=== PATIENT | female | born 1970 | race American Indian/Alaskan Native ===

== ENCOUNTER 2017-03-20 09:11 | Inpatient (IN) | payer OTHER ==
[2017-03-20] MEDS ORDERED: HEPARIN 10,000 UNITS/10 ML ONE ×2 (09:21→09:47)
[2017-03-20] MEDS ORDERED: HEPARIN/ 0.45% NACL-25,000 UNIT/500 ML 25,000 UNIT/500 ML BAG ONE (09:21)
[2017-03-20] MEDS ORDERED: NACL 0.9% 1000 ML 1,000 ML IV ONE ×2 (09:24→09:42)
[2017-03-20] MEDS: NITROSTAT SL PRN (09:28)
[2017-03-20] MEDS ORDERED: HEPARIN IV ONE (09:30)
[2017-03-20 09:38] LABS: Basophils % (Auto) 0.7 % (0.0-1.8); Eosinophils % (Auto) 1.7 % (0.0-4.3); Hematocrit 38.1 % (30.3-42.9); Hemoglobin 12.7 gm/dl (10.1-14.3); Mean Corpuscular HGB Conc 34 % (30-34); Mean Corpuscular Hemoglobin 28 pg (28-32); Mean Corpuscular Volume 84 fl (79-97); Platelet Count 245 K/mm3 (140-440); Red Blood Count 4.56 M/mm3 (3.65-5.03); Red Cell Distribution Width 13.9 % (13.2-15.2); White Blood Count 5.5 K/mm3 (4.5-11.0)
[2017-03-20] MEDS: HEPARIN/ 0.45% NACL-25,000 UNIT/500 ML 25,000 UNIT/500 ML BAG IV SCH (09:38)
[2017-03-20 09:47] LABS: INR 1.19 (0.87-1.13)
[2017-03-20] MEDS ORDERED: CALAN ONE (09:47)
[2017-03-20] MEDS ORDERED: NITROGLYCERIN SYRINGE 3 ML ONE (09:47)
[2017-03-20] MEDS ORDERED: HEPARIN/NS 5000 UNIT/500ML(CATH LAB) 1,000 ML IR ONE (09:47)
[2017-03-20] MEDS ORDERED: XYLOCAINE 2% INFILTRATI ONE (09:47)
--- NOTE | 2017-03-20 09:47 | Emergency Department Report ---
ED Chest Pain HPI - General Chief Complaint: Chest Pain Stated Complaint: CHEST PAIN Time Seen by Provider: 03/20/17 09:24 Source: patient Mode of arrival: Stretcher Limitations: No Limitations - History of Present Illness Initial Comments: 46-year-old female presents to the emergency department via EMS complaining of chest pain. Patient reports the acute onset of left-sided chest pressure this morning one hour prior to presentation. Pain does not radiate. Patient states she was taking the trash out when symptoms began. Patient reports diaphoresis, nausea, and the skull to breathing. Patient was given 324 mg of aspirin and 1 sublingual nitroglycerin by EMS. She reports this did help her pain some, but the pain is beginning to return. There are no other complaints. MD Complaint: chest pain -: Sudden, This morning Time: 08:00 Onset: during exertion Pain Location: left chest Pain Radiation: none Severity: severe Severity scale (0 -10): 8 Quality: pressure Consistency: constant Improves With: nitroglycerin Worsens With: nothing re: nausea, diaphoresis, dyspnea. denies: vomting Treatments Prior to Arrival: aspirin, nitroglycerin Aspirin use within the Past 7 Days: (0) No - Related Data Home Medications Medication Instructions Recorded Confirmed Last Taken No Known Home Medications [No 03/20/17 03/20/17 Unknown Reported Home Medications] Allergies Allergy/AdvReac Type Severity Reaction Status Date / Time No Known Allergies Allergy Unverified 03/20/17 09:35 CELSO score - Celso Score Age > 65: (0) No Aspirin use within the Past 7 Days: (0) No 3 or more CAD Risk Factors: (0) No 2 or more Angina events in past 24 hrs: (0) No Known CAD with more than 50% Stenosis: (0) No Elevated Cardiac Markers: (0) No ST Deviation Greater than 0.5mm: (1) Yes CELSO Score: 1 ED Review of Systems ROS: Stated complaint: CHEST PAIN Other details as noted in HPI Comment: All other systems reviewed and negative Constitutional: diaphoresis Respiratory: shortness of breath Cardiovascular: chest pain Gastrointestinal: nausea ED Past Medical Hx - Past Medical History Previous Medical History?: Yes Hx Hypertension: Yes - Surgical History Past Surgical History?: Yes Additional Surgical History: D&C for spontaneous - Family History Family history: diabetes - Social History Smoking Status: Never Smoker Substance Use Type: None - Medications Home Medications: Home Medications Medication Instructions Recorded Confirmed Last Taken Type No Known Home Medications [No 03/20/17 03/20/17 Unknown History Reported Home Medications] ED Physical Exam - General Limitations: No Limitations General appearance: alert, in no apparent distress - Head Head exam: Present: atraumatic, normocephalic - Eye Eye exam: Present: normal appearance, PERRL, EOMI - ENT ENT exam: Present: normal exam, normal orophraynx, mucous membranes moist - Neck Neck exam: Present: normal inspection, full ROM. Absent: tenderness - Respiratory Respiratory exam: Present: normal lung sounds bilaterally. Absent: respiratory distress - Cardiovascular Cardiovascular Exam: Present: normal rhythm, tachycardia, normal heart sounds - GI/Abdominal GI/Abdominal exam: Present: soft, normal bowel sounds. Absent: distended, tenderness - Extremities Exam Extremities exam: Present: normal inspection, full ROM. Absent: tenderness - Back Exam Back exam: Present: normal inspection, full ROM. Absent: tenderness - Neurological Exam Neurological exam: Present: alert, oriented X3. Absent: motor sensory deficit - Skin Skin exam: Present: warm, dry, intact ED Course Vital Signs 03/20/17 09:19 Pulse Rate 111 H Respiratory 21 Rate Blood Pressure 124/76 Blood Pressure 129/83 [Left] O2 Sat by Pulse 100 Oximetry ED Medical Decision Making - Lab Data Result diagrams: 03/20/17 09:19 - EKG Data -: EKG Interpreted by Me EKG shows normal: sinus rhythm, axis, intervals, QRS complexes Rate: tachycardia - EKG Data When compared to previous EKG there are: previous EKG unavailable Interpretation: acute WI (lateral ST elevation with inferior reciprocal ST depression) - Medical Decision Making Code STEMI was activated on patient arrival. Giving additional nitroglycerin and starting the patient on a heparin drip. I have spoken with Dr. Ramon, interventional cardiology. He has reviewed the EKG and plans to take the patient to the [facility]. Patient will be admitted by the hospitalist. - Differential Diagnosis ACS, atypical chest pain, GERD Critical care attestation.: If time is entered above; I have spent that time in minutes in the direct care of this critically ill patient, excluding procedure time. ED Disposition Clinical Impression: STEMI (ST elevation myocardial infarction) Qualifiers: Involved coronary artery: unspecified coronary artery Qualified Code(s): I21.3 - ST elevation (STEMI) myocardial infarction of unspecified site Disposition: OP ADMITTED IP TO THIS HOSP Is pt being admited?: Yes Condition: Stable Referrals: PRIMARY CARE,MD [Primary Care Provider] - 3-5 Days Time of Disposition: 09:53
[2017-03-20 09:48] LABS: Partial Thromboplastin Time 33.9 Sec. (24.2-36.6)
[2017-03-20] MEDS ORDERED: NACL 0.9% 1000 ML 0 ML ONE (09:48)
[2017-03-20] MEDS ORDERED: AGGRASTAT DRIP (12.5 MG/250 ML) 0 MCG/0 ML BAG IV ONE (09:48)
[2017-03-20] MEDS ORDERED: NACL 0.9% 0 ML ONE (09:48)
[2017-03-20] MEDS ORDERED: ANGIOMAX IV ONE (09:49)
[2017-03-20] MEDS ORDERED: VERSED ONE (09:49)
[2017-03-20] MEDS ORDERED: WATER FOR INJ (PF) 0 ML ONE (09:49)
[2017-03-20] MEDS ORDERED: SUBLIMAZE ONE (09:49)
[2017-03-20 09:53] LABS: Creatine Kinase MB 1.1 ng/mL (0.0-4.0)
[2017-03-20 09:55] LABS: Anion Gap 17 mmol/L; Blood Urea Nitrogen 13 mg/dL (7-17); Calcium 8.4 mg/dL (8.4-10.2); Carbon Dioxide 22 mmol/L (22-30); Creatine Kinase 72 units/L (30-135); Glucose 160 mg/dL (65-100); Potassium 3.8 mmol/L (3.6-5.0); Sodium 142 mmol/L (137-145)
[2017-03-20] MEDS ORDERED: BENADRYL ONE (09:59)
[2017-03-20] MEDS ORDERED: PLAVIX PO ONE (10:59)
[2017-03-20] MEDS ORDERED: NACL 0.9% 1000 ML 1,000 ML IV SCH (11:00)
[2017-03-20] MEDS ORDERED: NACL 0.9% 1000 ML 1,000 ML ONE (11:01)
--- NOTE | 2017-03-20 11:06 | Consultation ---
History of Present Illness Consult date: 03/20/17 Consult reason: chest pain, other (ACS) History of present illness: 46y F who presented with chest pain, acute coronary syndrome. ECG was indeterminate, subtle, borderline lateral ST abnormality. Cardiac cath: 100% occlusion of the LAD in its distal apical segment. Not suitable for intervention-recommende for medical therapy. The reminder of her coronary anatomy has no significant lesions. LVEF was 55-60%, with a small segment of anteroapical HK. Medical therapy with Imdur, metoprolol, Lisinopril, ASA, Plavix and Atorvastatin. Heparin for 48hrs while hospitalized. Past History Past Medical History: No medical history Medications and Allergies Allergies Allergy/AdvReac Type Severity Reaction Status Date / Time No Known Allergies Allergy Verified 03/20/17 09:47 Home Medications Medication Instructions Recorded Confirmed Last Taken Type No Known Home Medications [No 03/20/17 03/20/17 Unknown History Reported Home Medications] Active Meds: Active Medications Sodium Chloride (Nacl 0.9% 1000 Ml) 1,000 mls @ 42 mls/hr IV ONCE ONE Stop: 03/21/17 09:12 Heparin Sodium/Sodium Chloride (Heparin/ 0.45% Nacl-25,000 Unit/500 Ml) 25,000 unit in 500 mls @ 31.298 mls/hr IV TITRATE EVELYNE; 15 UNITS/KG/HR PRN Reason: Protocol Stop: 03/22/17 09:59 Last Admin: 03/20/17 09:38 Dose: 15 units/kg/hr, 31.298 mls/hr Nitroglycerin (Nitrostat) 0.4 mg SL .Q5MIN PRN PRN Reason: Chest Pain Last Admin: 03/20/17 09:28 Dose: 0.4 mg Review of Systems Cardiovascular: chest pain, shortness of breath, no orthopnea, no palpitations, no rapid/irregular heart beat, no edema, no syncope, no lightheadedness Physical Examination Vital Signs Pulse Resp BP Pulse Ox 109 H 17 129/83 100 03/20/17 09:19 03/20/17 09:19 03/20/17 09:19 03/20/17 09:19 General appearance: no acute distress HEENT: Positive: PERRL Neck: Positive: neck supple Cardiac: Positive: Reg Rate and Rhythm Lungs: Positive: clear to auscultation Neuro: Positive: Grossly Intact Abdomen: Positive: Soft Female genitourinary: deferred Skin: Positive: Clear Extremities: Absent: edema Results 03/20/17 09:19 03/20/17 09:19 Cardiac Enzymes 03/20/17 Range/Units 09:19 CK-MB (CK-2) 1.1 (0.0-4.0) ng/mL Coagulation 03/20/17 Range/Units 09:19 PT 15.0 H (12.2-14.9) Sec. INR 1.19 H (0.87-1.13) APTT 33.9 (24.2-36.6) Sec. CBC 03/20/17 Range/Units 09:19 WBC 5.5 (4.5-11.0) K/mm3 RBC 4.56 (3.65-5.03) M/mm3 Hgb 12.7 (10.1-14.3) gm/dl Hct 38.1 (30.3-42.9) % Plt Count 245 (140-440) K/mm3 Lymph # 2.9 (1.2-5.4) K/mm3 [place] # 0.4 (0.0-0.8) K/mm3 Eos # 0.1 (0.0-0.4) K/mm3 Baso # 0.0 (0.0-0.1) K/mm3 Comprehensive Metabolic Panel 03/20/17 Range/Units 09:19 Sodium 142 (137-145) mmol/L Potassium 3.8 (3.6-5.0) mmol/L Chloride 107.0 (98-107) mmol/L Carbon Dioxide 22 (22-30) mmol/L BUN 13 (7-17) mg/dL Creatinine 0.5 L (0.7-1.2) mg/dL Glucose 160 H (65-100) mg/dL Calcium 8.4 (8.4-10.2) mg/dL EKG interpretations - Telemetry EKG Rhythm: Sinus Rhythm Assessment and Plan - Patient Problems (1) ACS (acute coronary syndrome) Status: Acute Plan to address problem: Cardiac cath: 100% occlusion of the LAD in its distal apical segment. Not suitable for intervention-recommende for medical therapy. The reminder of her coronary anatomy has no significant lesions. LVEF was 55-60%, with a small segment of anteroapical HK. Medical therapy with Imdur, metoprolol, Lisinopril, ASA, Plavix and Atorvastatin. Heparin for 48hrs while hospitalized.
[2017-03-20 14:09] LABS: Hematocrit 38.8 % (30.3-42.9)
--- NOTE | 2017-03-20 14:16 | History and Physical Report ---
History of Present Illness Date of examination: 03/20/17 Date of admission: 03/20/17 10:59 Chief complaint: Chest pain History of present illness: 46-year-old -[place] female presented to the ER via EMS from home with complaint of chest pain. Patient reported patient reported sharp and stabbing midsternal chest pain started this morning after returning from walking to and from her mailbox. Patient also reported having numbness to her left arm. Patient reported this was not the first time she is had this episode intermittently for over a year; However, this morning's episode, the pain was a 9 out of 10 on scale 0/10. Patient denied significant past medical history, only had an ectopic in 1999. Patient denies smoking and alcohol use. Patient denies fever, chills, nausea, vomiting, abdomen pain, diarrhea and constipation. Past History Past Medical History: No medical history Past Surgical History: No surgical history, Other Social history: single, lives with family, alcohol abuse (Social drinker 2-3 times a year), full code. denies: smoking, prescription drug abuse Family history: diabetes, hypertension, other (Hyperlipidemia) Medications and Allergies Allergies Allergy/AdvReac Type Severity Reaction Status Date / Time No Known Allergies Allergy Verified 03/20/17 09:47 Home Medications Medication Instructions Recorded Confirmed Last Taken Type No Known Home Medications [No 03/20/17 03/20/17 Unknown History Reported Home Medications] Active Meds: Active Medications Aspirin (Halfprin Ec) 81 mg PO QDAY EVELYNE Atorvastatin Calcium (Lipitor) 20 mg PO QHS EVELYNE Clopidogrel Bisulfate (Plavix) 75 mg PO QDAY EVELYNE Sodium Chloride (Nacl 0.9% 1000 Ml) 1,000 mls @ 42 mls/hr IV ONCE ONE Stop: 03/21/17 09:12 Heparin Sodium/Sodium Chloride (Heparin/ 0.45% Nacl-25,000 Unit/500 Ml) 25,000 unit in 500 mls @ 31.298 mls/hr IV TITRATE EVELYNE; 15 UNITS/KG/HR PRN Reason: Protocol Stop: 03/22/17 09:59 Last Admin: 03/20/17 09:38 Dose: 15 units/kg/hr, 31.298 mls/hr Sodium Chloride (Nacl 0.9% 1000 Ml) 1,000 mls @ 100 mls/hr IV DIRECT EVELYNE Stop: 03/20/17 20:59 Last Admin: 03/20/17 11:14 Dose: 100 mls/hr Isosorbide Mononitrate (Imdur) 30 mg PO QDAY [facility] Lisinopril (Zestril) 2.5 mg PO QDAY [facility] Metoprolol Tartrate (Lopressor) 25 mg PO BID [facility] Nitroglycerin (Nitrostat) 0.4 mg SL .Q5MIN PRN PRN Reason: Chest Pain Last Admin: 03/20/17 09:28 Dose: 0.4 mg Review of Systems Constitutional: no weight gain, no fever, no chills Ears, nose, mouth and throat: no nasal congestion, no headache, no vertigo Breasts: normal Cardiovascular: chest pain, no palpitations, no syncope, no shortness of breath Respiratory: no cough with sputum Rectal: no pain, no incontinence Musculoskeletal: leg numbness/tingling (Left arm numbness during the chest pain episode), no low back pain Integumentary: no rash, no sores, no wounds Neurological: no head injury, no syncope, no headaches Psychiatric: no anxiety, no suicidal ideation, no depression Exam - Constitutional Vitals: Temp Pulse Resp BP Pulse Ox 98.3 F 95 H 16 123/74 97 03/20/17 10:45 03/20/17 12:30 03/20/17 12:30 03/20/17 12:30 03/20/17 12:30 General appearance: Present: no acute distress, well-nourished - EENT Eyes: Present: PERRL ENT: hearing intact, clear oral mucosa - Neck Neck: Present: supple, normal ROM - Respiratory Respiratory effort: normal Respiratory: bilateral: CTA - Cardiovascular Rhythm: regular Heart Sounds: Present: S1 & S2. Absent: rub, click - Extremities Extremities: pulses symmetrical, No edema Peripheral Pulses: within normal limits - Abdominal General gastrointestinal: Present: soft, non-tender, non-distended, hypoactive bowel sounds - Integumentary Integumentary: Present: clear, warm, dry - Musculoskeletal Musculoskeletal: gait normal, strength equal bilaterally - Psychiatric Psychiatric: appropriate mood/affect, intact judgment & insight - Neurologic Neurologic: CNII-XII intact, moves all extremities - Allied Health Allied health notes reviewed: nursing Results - Labs CBC & Chem 7: 03/20/17 13:24 03/20/17 09:19 Labs: Laboratory Last Values WBC 5.5 K/mm3 (4.5-11.0) 03/20/17 09:19 RBC 4.56 M/mm3 (3.65-5.03) 03/20/17 09:19 Hgb 13.0 gm/dl (10.1-14.3) 03/20/17 13:24 Hct 38.8 % (30.3-42.9) 03/20/17 13:24 MCV 84 fl (79-97) 03/20/17 09:19 MCH 28 pg (28-32) 03/20/17 09:19 MCHC 34 % (30-34) 03/20/17 09:19 RDW 13.9 % (13.2-15.2) 03/20/17 09:19 Plt Count 246 K/mm3 (140-440) 03/20/17 13:24 Lymph % (Auto) 51.6 % (13.4-35.0) H 03/20/17 09:19 [place] % (Auto) 7.6 % (0.0-7.3) H 03/20/17 09:19 Eos % (Auto) 1.7 % (0.0-4.3) 03/20/17 09:19 Baso % (Auto) 0.7 % (0.0-1.8) 03/20/17 09:19 Lymph # 2.9 K/mm3 (1.2-5.4) 03/20/17 09:19 [place] # 0.4 K/mm3 (0.0-0.8) 03/20/17 09:19 Eos # 0.1 K/mm3 (0.0-0.4) 03/20/17 09:19 Baso # 0.0 K/mm3 (0.0-0.1) 03/20/17 09:19 Seg Neutrophils % 38.4 % (40.0-70.0) L 03/20/17 09:19 Seg Neutrophils # 2.1 K/mm3 (1.8-7.7) 03/20/17 09:19 PT 15.0 Sec. (12.2-14.9) H 03/20/17 09:19 INR 1.19 (0.87-1.13) H 03/20/17 09:19 APTT 33.9 Sec. (24.2-36.6) 03/20/17 09:19 Sodium 142 mmol/L (137-145) 03/20/17 09:19 Potassium 3.8 mmol/L (3.6-5.0) 03/20/17 09:19 Chloride 107.0 mmol/L (98-107) 03/20/17 09:19 Carbon Dioxide 22 mmol/L (22-30) 03/20/17:19 Anion Gap 17 mmol/L 03/20/17 09:19 BUN 13 mg/dL (7-17) 03/20/17 09:19 Creatinine 0.5 mg/dL (0.7-1.2) L 03/20/17 09:19 Estimated GFR > 60 ml/min 03/20/17 09:19 BUN/Creatinine Ratio 26.00 % 03/20/17:19 Glucose 160 mg/dL (65-100) H 03/20/17:19 Calcium 8.4 mg/dL (8.4-10.2) 03/20/17 09:19 Total Creatine Kinase 72 units/L (30-135) 03/20/17 09:19 CK-MB (CK-2) 1.1 ng/mL (0.0-4.0) 03/20/17 09:19 CK-MB (CK-2) Rel Index 1.5 (0-4) 03/20/17:19 Troponin T < 0.010 ng/mL (0.00-0.029) 03/20/17:19 Blood Type A POSITIVE 03/20/17:19 Antibody Screen TNR 03/20/17:19 JEANNE Antibody Screen Negative 03/20/17 09:19 Assessment and Plan Assessment and plan: 46-year-old -[place] female presented to the ER via EMS from home with complaint of chest pain. Patient reported patient reported sharp and stabbing midsternal chest pain started this morning after returning from walking to and from her mailbox. Patient also reported having numbness to her left arm. Patient reported this was not the first time she is had this episode intermittently for over a year; However, this morning's episode, the pain was a 9 out of 10 on scale 0/10. Patient denied significant past medical history, only had an ectopic in 1999. Patient denies smoking and alcohol use. On exam, Patient alert and oriented 3, denies fever, chills, nausea, vomiting , abdomen pain, diarrhea and constipation. 1. Chest pain due to ST elevation [place]- EKG and chest x-ray obtained in ER, serial cardiac enzyme, IV Heparin drip, consult cardiac interventionalists, consult cardiac rehab 2. Hyperglycemia - A1c ordered, monitor Accu-Checks, and insulin sliding scale ordered while in the hospital 3. DVT prophylaxis- Patient already on heparin drip Advance Directives: No (Full Code) VTE prophylaxis?: Chemical Plan of care discussed with patient/family: Yes
[2017-03-20 14:36] LABS: INR 1.12 (0.87-1.13)
[2017-03-20 14:37] LABS: Partial Thromboplastin Time 50.3 Sec. (24.2-36.6)
[2017-03-20] MEDS ORDERED: ZOFRAN IV PRN (15:48)
[2017-03-20] MEDS ORDERED: DULCOLAX PR PRN (15:48)
[2017-03-20] MEDS ORDERED: TYLENOL PO PRN (15:48)
[2017-03-20] MEDS ORDERED: MILK OF MAGNESIA PO PRN (15:48)
[2017-03-20] MEDS ORDERED: D50W (25GM) IV PRN (16:15)
--- NOTE | 2017-03-20 16:43 | Cardiac Catherization Report ---
REASON FOR PROCEDURE: The patient is a 46-year-old woman who presented to the Emergency Room with chest pain suspicious of acute coronary syndrome. The ECG revealed nonspecific, subtle ST elevation in the lateral precordial leads, prompting recommendation for emergency cardiac catheterization protocol. DESCRIPTION OF PROCEDURE: The patient was prepped and draped in a sterile fashion after informed consent. The right femoral artery was entered using the Seldinger technique followed by placement of a 6-[place] sheath. Selective left and right coronary angiography was performed using #4 right and left Yasir catheters. A pigtail catheter was used for left ventricle angiography. The catheters were removed, sheath removed, and hemostasis achieved using an Angio-Seal device. The patient was returned to the post-procedure unit in stable condition. There were no complications. FINDINGS: HEMODYNAMICS: Left ventricle end diastolic pressure was 25, following coronary angiography. Ascending aortic pressure was 105/71. There was no significant pressure gradient on pullback across the aortic valve. CORONARY ANGIOGRAPHY: The left main coronary artery was angiographically normal. The left anterior descending artery contained minimal irregularities in its proximal and mid segments. There was also no significant disease in a large proximal diagonal branch. Following that, we noted complete occlusion of the LAD in its distal, apical segment. Prior to this occlusion, the LAD tapered significantly to a diameter of less than 2 mm, and was very tortuous, culminating in the complete occlusion in the apical segment. The circumflex artery was a large system that contained mild irregularities, no significant disease. The right coronary artery was a large dominant vessel with a large PDA that extended to the left ventricular apex, as well as the large posterior left ventricular branch. This right coronary artery and its branches were free of significant disease. Left ventricular chamber size was within normal spread. Overall, left ventricular systolic function was normal, ejection fraction 55-60%. We did note a small focal segment of moderate to severe hypokinesis of the anteroapical wall. CONCLUSION: 1. Acute coronary syndrome. 2. Emergency cardiac catheterization. 3. Complete occlusion of the LAD in its distal, apical segment. 4. Otherwise, no other significant coronary lesions. 5. Overall, well preserved left ventricular systolic function, ejection fraction 55-60%. Regional wall motion abnormalities described consistent with distal apical LAD infarct. RECOMMENDATION: The distal apical small vessel occlusion of the LAD is not suitable for coronary intervention and will be managed medically. [facility]# [id number] JOSE ARMANDO/DELORES
[2017-03-20] MEDS ORDERED: MORPHINE ONE (17:53)
[2017-03-20] MEDS: LOPRESSOR PO SCH ×2 (19:55→21:46)
[2017-03-20] MEDS: IMDUR PO SCH (20:00)
[2017-03-20] MEDS: NOVOLOG SUB-Q SCH ×2 (20:01→21:48)
[2017-03-20] MEDS: MORPHINE IV PRN (21:48)
--- NOTE | 2017-03-20 23:41 | Admit Criteria Form ---
Admission Criteria Documentation: MYOCARDIAL INFARCTION Clinical Indications for Admission to Inpatient Care (Place 'X' for any and all applicable criteria): Admission is indicated for 1 or more of the following (1)(2)(3)(4): [X ]I. Acute VA [ ]II. Contraindications and/or Inappropriate clinical situations for Observational Care in patients with Myocardial Infarction, when ANY ONE of the following is required: [ ]a) Patient with High risk of cardiac embolism (e.g, patients with previous cardiac embolism, LVEF < 40%, age >75 and patients with prosthetic valve) 18 [ ]b) Patient with Moderate risk including DM patient, CAD and patient aged 65-75 18 [ ]c) Patient with any change in cardiac biomarker especially troponin should be managed as high risk in an inpatient setting 19 [ ]d) Physician judgement irrespective of ECG and other diagnostic findings 20 [ ]III.General contraindications and/or Inappropriate clinical situations for Observational Care in patients with Myocardial Infarction, when ANY ONE of the following is required: [ ]a) Prediction of prolongation of LOS based on ANY ONE of the following may be considered as a contraindication for observational care 2, 3, 4, 5, 6, 7, 8, 9, 10, 11 [ ]i) Age > 65 yrs. [ ]ii) Patient arriving by ambulance [ ]iii) Patient with high acuity [ ]iv) Patient requiring vital sign monitoring [ ]v) Patient on IV medication [ ]b) Systolic blood pressures greater than or equal to 180mmHg 3,12 [ ]c) Patient with altered mental status including delirium and other alteration of consciousness, (3) [ ]d) Patient whose discharge disposition will be to a fdc home or rehabilitation home should not be managed in Emergency Department Observation Unit. CMS rule requires 3 days hospital stay before such placement. 3,13 [ ]e) Patient with failure to thrive due to broad array of etiologies 3 ,16,17 [ ]f) Inability to ambulate 3,14 Extended stay beyond goal length of stay may be needed for (1)(18)(20)(24)(25): [ ]a) Hemodynamic instability, persisting symptoms after intensive medical management, or recurring severe, prolonged symptoms [ ]b) Intravascular procedural complications such as acute vessel closure, stent thrombosis, stent malposition, or vessel dissection (26)(27)(28) [ ]c) Extravascular procedural complications such as retroperitoneal hematoma , pericardial effusion, or cardiac tamponade [ ]d) Entry site complications causing bleeding, hematoma or distal ischemia and requiring ongoing monitoring, surgical repair or surgical thrombectomy. Dangerous arrhythmia [ ]e) Complicated percutaneous coronary intervention (e.g., unsuccessful percutaneous coronary intervention or percutaneous coronary intervention of non- [place] vessel) [ ]f) Urgent or emergent surgery for complications of VA (e.g., ventricular rupture, valvular insufficiency) [ ]g) Surgical revascularization via coronary artery bypass graft [ ]h) Heart failure (e.g., pulmonary edema) [ ]i) Unstable pulmonary comorbidities, including COPD or pneumonia (31) [ ]j) Acute renal failure The original [employer] content created by [email or web address] has been revised. The portions of the content which have been revised are identified through the use of italic text or in bold, and [employer] has neither reviewed nor approved the modified material. All other unmodified content is copyright [facility] Please see references footnoted in the original [email or web address] edition 2016 Admission Criteria Met: Yes
[2017-03-21] MEDS ORDERED: NACL 0.9% 500 ML 500 ML IV ONE (05:14)
[2017-03-21] MEDS: NOVOLOG SUB-Q SCH ×4 (07:30→22:08)
[2017-03-21 08:31] LABS: Basophils % (Auto) 0.4 % (0.0-1.8); Eosinophils % (Auto) 0.1 % (0.0-4.3); Hemoglobin 11.7 gm/dl (10.1-14.3); Mean Corpuscular HGB Conc 33 % (30-34); Mean Corpuscular Hemoglobin 28 pg (28-32); Mean Corpuscular Volume 82 fl (79-97); Platelet Count 240 K/mm3 (140-440); Red Blood Count 4.26 M/mm3 (3.65-5.03); Red Cell Distribution Width 13.7 % (13.2-15.2); White Blood Count 12.7 K/mm3 (4.5-11.0)
--- NOTE | 2017-03-21 08:35 | Progress Note ---
Assessment and Plan Assessment and plan: Acute NSTEMI. Patient presented with chest pain, diagnosed with NSTEMI. Cardiac cath yesterday showed total occlusion of LAD in distal apical segment. Medical management recommended by Cardiology. Continue Aspirin, Plavix, Heparin drip, metoprolol. Likely transfer from ICU to telemetry tomorrow Morbid obesity. Full code status. History Interval history: patient presented with chest pain, diagnosed with SD, no more chest pain Hospitalist Physical - Physical exam Narrative exam: Gen: appearance :Not in acute distress,morbidly obese HEENT: normocephalic atraumatic Neck :supple no JVD Lungs: clear to auscultation bilaterally no crackles or wheezes Heart:S1 and S2 regular no murmurs no gallop Abdomen soft, nontender, nondistended, normal bowel sounds Extremities: no edema, no clubbing, or cyanosis Neuro : Awake alert oriented 3, no focal neurologic signs Psych :normal mood. - Constitutional Vitals: Temp Pulse Resp BP Pulse Ox 98.4 F 61 11 L 97/59 96 03/21/17 08:00 03/21/17 07:00 03/21/17 07:00 03/21/17 07:00 03/21/17 07:00 General appearance: Present: no acute distress, well-nourished Results - Labs CBC & Chem 7: 03/21/17 07:57 03/21/17 07:57 Labs: Laboratory Last Values WBC 12.7 K/mm3 (4.5-11.0) H 03/21/17 07:57 RBC 4.26 M/mm3 (3.65-5.03) 03/21/17 07:57 Hgb 11.7 gm/dl (10.1-14.3) 03/21/17 07:57 Hct 35.0 % (30.3-42.9) 03/21/17 07:57 MCV 82 fl (79-97) 03/21/17 07:57 MCH 28 pg (28-32) 03/21/17 07:57 MCHC 33 % (30-34) 03/21/17 07:57 RDW 13.7 % (13.2-15.2) 03/21/17 07:57 Plt Count 240 K/mm3 (140-440) 03/21/17 07:57 Lymph % (Auto) 21.5 % (13.4-35.0) 03/21/17 07:57 [place] % (Auto) 6.9 % (0.0-7.3) 03/21/17 07:57 Eos % (Auto) 0.1 % (0.0-4.3) 03/21/17 07:57 Baso % (Auto) 0.4 % (0.0-1.8) 03/21/17 07:57 Lymph # 2.7 K/mm3 (1.2-5.4) 03/21/17 07:57 [place] # 0.9 K/mm3 (0.0-0.8) H 03/21/17 07:57 Eos # 0.0 K/mm3 (0.0-0.4) 03/21/17 07:57 Baso # 0.0 K/mm3 (0.0-0.1) 03/21/17 07:57 Seg Neutrophils % 71.1 % (40.0-70.0) H 03/21/17 07:57 Seg Neutrophils # 9.1 K/mm3 (1.8-7.7) H 03/21/17 07:57 PT 14.3 Sec. (12.2-14.9) 03/20/17 13:24 INR 1.12 (0.87-1.13) 03/20/17 13:24 APTT 50.3 Sec. (24.2-36.6) H 03/20/17 13:24 Heparin Anti-Xa Level 1.57 U.I./ml (0.3-0.7) H 03/20/17 21:12 Sodium 142 mmol/L (137-145) 03/20/17 09:19 Potassium 3.8 mmol/L (3.6-5.0) 03/20/17 09:19 Chloride 107.0 mmol/L (98-107) 03/20/17 09:19 Carbon Dioxide 22 mmol/L (22-30) 03/20/17 09:19 Anion Gap 17 mmol/L 03/20/17 09:19 BUN 13 mg/dL (7-17) 03/20/17 09:19 Creatinine 0.5 mg/dL (0.7-1.2) L 03/20/17 09:19 Estimated GFR > 60 ml/min 03/20/17 09:19 BUN/Creatinine Ratio 26.00 % 03/20/17 09:19 Glucose 160 mg/dL (65-100) H 03/20/17 09:19 POC Glucose 162 (70-105) H 03/20/17 21:44 Hemoglobin A1c 6.1 % (4-6) H 03/20/17 16:48 Calcium 8.4 mg/dL (8.4-10.2) 03/20/17 09:19 Total Creatine Kinase 72 units/L (30-135) 03/20/17 09:19 CK-MB (CK-2) 1.1 ng/mL (0.0-4.0) 03/20/17 09:19 CK-MB (CK-2) Rel Index 1.5 (0-4) 03/20/17 09:19 Troponin T < 0.010 ng/mL (0.00-0.029) 03/20/17 09:19 Blood Type A POSITIVE 03/20/17 09:19 Antibody Screen TNR 03/20/17 09:19 JEANNE Antibody Screen Negative 03/20/17 09:19
[2017-03-21 08:44] LABS: Anion Gap 13 mmol/L; Blood Urea Nitrogen 10 mg/dL (7-17); Calcium 8.1 mg/dL (8.4-10.2); Carbon Dioxide 24 mmol/L (22-30); Chloride 109.8 mmol/L (98-107); Glucose 117 mg/dL (65-100); Potassium 3.9 mmol/L (3.6-5.0); Sodium 143 mmol/L (137-145)
[2017-03-21 08:45] LABS: Creatine Kinase MB 53.6 ng/mL (0.0-4.0)
--- NOTE | 2017-03-21 09:58 | Progress Note ---
Assessment and Plan Acute coronary syndrome Cardiac cath: 100% occlusion of the LAD in its distal apical segment. Not suitable for intervention-recommended for medical therapy. The reminder of her coronary anatomy has no significant lesions. LVEF was 55-60%, with a small segment of anteroapical HK. Recommendations: CCU monitoring for an additional 24hrs. Continue medical therapy for coronary disease with Imdur, Metoprolol, Lisinopril , ASA, Plavix and Atorvastatin. Subjective Date of service: 03/21/17 Interval history: Patient denies chest pain and shortness of breath. Objective Vital Signs Temp Pulse Pulse Resp Resp BP Pulse Ox 03/21/17 08:45 64 14 108/65 100 03/21/17 08:30 69 11 L 113/69 100 03/21/17 08:15 65 11 L 112/66 03/21/17 08:00 98.4 F 62 11 L 106/62 97 03/21/17 07:45 79 13 113/70 97 03/21/17 07:30 63 16 106/63 03/21/17 07:15 67 19 105/61 97 03/21/17 07:00 61 11 L 97/59 96 03/21/17 06:45 86 20 119/66 99 03/21/17 06:30 77 17 102/60 98 03/21/17 06:28 20 03/21/17 06:15 66 14 103/65 96 03/21/17 06:00 61 15 111/65 96 03/21/17 05:45 65 17 109/60 97 03/21/17 05:30 55 L 10 L 104/61 99 03/21/17 05:28 12 03/21/17 05:15 68 15 98/57 96 03/21/17 05:00 63 16 87/47 96 03/21/17 04:45 60 14 81/49 97 03/21/17 04:30 71 13 96/59 96 03/21/17 04:15 70 14 101/57 97 03/21/17 04:00 98.7 F 66 15 103/59 97 03/21/17 03:45 63 11 L 99/60 97 03/21/17 03:30 64 16 100/59 96 03/21/17 03:15 64 17 98/55 96 03/21/17 03:00 54 L 15 99/56 95 03/21/17 02:45 73 25 H 95/59 98 03/21/17 02:30 56 L 13 94/50 96 03/21/17 02:15 73 15 96/59 95 03/21/17 02:00 68 16 100/62 97 03/21/17 01:45 72 17 105/62 96 03/21/17 01:30 69 18 103/61 96 03/21/17 01:15 57 L 9 L 99/54 98 03/21/17 01:00 60 16 87/46 95 03/21/17 00:45 82 19 105/62 96 03/21/17 00:30 76 13 100/62 98 03/21/17 00:15 69 15 105/61 99 03/21/17 00:00 98.6 F 71 16 103/66 98 03/20/17 23:45 66 16 102/60 98 03/20/17 23:30 66 17 109/63 98 03/20/17 23:15 69 17 108/61 98 03/20/17 23:00 71 16 105/59 99 03/20/17 22:45 75 11 L 102/52 98 03/20/17 22:30 78 18 98/50 98 03/20/17 22:18 20 03/20/17 22:15 88 20 130/73 96 03/20/17 22:00 85 17 118/73 99 03/20/17 21:56 16 03/20/17 21:48 94 H 15 110/69 98 03/20/17 21:46 78 115/72 03/20/17 21:45 87 10 L 110/69 100 03/20/17 21:30 93 H 17 115/72 97 03/20/17 21:15 90 16 128/65 97 03/20/17 21:00 99 H 17 116/71 97 03/20/17 20:45 84 17 123/68 98 03/20/17 20:30 93 H 15 130/63 98 03/20/17 20:15 101 H 20 121/74 99 03/20/17 20:04 98 03/20/17 20:00 99.2 F 97 H 11 L 131/84 97 03/20/17 19:46 102 H 14 113/62 98 03/20/17 19:30 102 H 68 16 111/65 98 03/20/17 19:16 102 H 15 111/65 06/05/17 19:00 100 H 17 111/65 06/05/17 18:45 94 H 16 111/65 97 /05/17 18:30 96 H 20 122/69 98 0605/17 18:15 98 H 12 112/70 98 05/17 18:00 95 H 12 121/71 99 06/05/17 17:45 96 H 15 116/72 97 06/05/17 17:30 98 H 15 120/72 98 0605/ 17:15 107 H 15 141/75 98 05/ 17:00 87 13 126/77 98 05/17 16:45 95 H 15 117/77 97 05/ 16:30 94 H 11 L 119/78 98 05/ 16:20 89 12 117/76 98 05/ 16:10 95 H 17 129/77 97 05/17 16:00 98.6 F 107 H 15 129/77 96 05/ 15:50 96 H 15 108/69 97 05/17 15:40 94 H 14 114/61 97 05/17 15:39 96 05/17 15:30 93 H 14 114/61 97 05/17 15:20 86 13 111/60 98 05/ 15:10 99 H 16 120/66 98 05/17 15:00 99 H 13 120/66 98 05/17 14:50 94 H 12 106/69 98 05/17 14:40 91 H 11 L 114/71 98 05/17 14:30 91 H 11 L 114/71 97 05/17 14:20 96 H 13 110/77 100 05/ 14:10 107 H 17 107/68 95 05/17 14:00 98 H 17 107/68 95 05/17 13:50 93 H 14 104/60 96 05/ 13:40 108 H 23 114/67 98 05/17 13:30 85 15 110/61 99 /05/17 13:20 103 H 13 114/67 98 05/17 13:10 96 H 12 108/61 98 05/17 13:00 96 H 16 03/20/17 12:30 95 H 16 123/74 97 03/20/17 12:00 94 H 14 120/67 98 03/20/17 11:30 104 H 14 122/75 96 03/20/17 11:15 99 H 14 126/75 97 03/20/17 11:00 96 H 15 121/77 97 - Physical Examination General: No Apparent Distress HEENT: Positive: PERRL Neck: Positive: neck supple Cardiac: Positive: Reg Rate and Rhythm Neuro: Positive: Grossly Intact Incision: Cardiac Cath Site Extremities: Absent: edema - Labs and Meds Cardiac Enzymes 03/21/17 Range/Units 07:57 CK-MB (CK-2) 53.6 H (0.0-4.0) ng/mL Coagulation 03/20/17 Range/Units 13:24 PT 14.3 (12.2-14.9) Sec. INR 1.12 (0.87-1.13) APTT 50.3 H (24.2-36.6) Sec. CBC 03/20/17 03/21/17 Range/Units 13:24 07:57 WBC 12.7 H (4.5-11.0) K/mm3 RBC 4.26 (3.65-5.03) M/mm3 Hgb 13.0 11.7 (10.1-14.3) gm/dl Hct 38.8 35.0 (30.3-42.9) % Plt Count 246 240 (140-440) K/mm3 Lymph # 2.7 (1.2-5.4) K/mm3 [place] # 0.9 H (0.0-0.8) K/mm3 Eos # 0.0 (0.0-0.4) K/mm3 Baso # 0.0 (0.0-0.1) K/mm3 Comprehensive Metabolic Panel 03/21/17 Range/Units 07:57 Sodium 143 (137-145) mmol/L Potassium 3.9 (3.6-5.0) mmol/L Chloride 109.8 H (98-107) mmol/L Carbon Dioxide 24 (22-30) mmol/L BUN 10 (7-17) mg/dL Creatinine 0.5 L (0.7-1.2) mg/dL Glucose 117 H (65-100) mg/dL Calcium 8.1 L (8.4-10.2) mg/dL
[2017-03-21] MEDS: MORPHINE IV PRN (10:17)
[2017-03-21] MEDS: HALFPRIN EC PO SCH (10:32)
[2017-03-21] MEDS: PLAVIX PO SCH (10:32)
[2017-03-21] MEDS: LOPRESSOR PO SCH ×2 (10:33→22:08)
[2017-03-21] MEDS: IMDUR PO SCH (10:33)
[2017-03-21] MEDS: ZESTRIL PO SCH (10:33)
[2017-03-21] MEDS ORDERED: HEPARIN/ 0.45% NACL-25,000 UNIT/500 ML 25,000 UNIT/500 ML BAG ONE (11:24)
[2017-03-21] MEDS: HEPARIN/ 0.45% NACL-25,000 UNIT/500 ML 25,000 UNIT/500 ML BAG IV SCH (11:47)
--- NOTE | 2017-03-21 13:52 | Consultation ---
History of Present Illness - Reason for Consult Consult date: 03/21/17 ICU Requesting physician: MARIE ROJAS - History of Present Illness 46 y/o female, admitted with STEMI. Followed by cardiology. Had intervention Past History Past Medical History: No medical history Past Surgical History: No surgical history, Other Social history: single, lives with family, alcohol abuse (Social drinker 2-3 times a year), full code. denies: smoking, prescription drug abuse Family history: diabetes, hypertension, other (Hyperlipidemia) Medications and Allergies Allergies Allergy/AdvReac Type Severity Reaction Status Date / Time No Known Allergies Allergy Verified 03/20/17 09:47 Home Medications Medication Instructions Recorded Confirmed Last Taken Type No Known Home Medications [No 03/20/17 03/20/17 Unknown History Reported Home Medications] Active Meds: Active Medications Acetaminophen (Tylenol) 650 mg PO Q4H PRN PRN Reason: Pain MILD(1-3)/Fever >100.5/ORDOÑEZ Last Admin: 03/21/17 05:28 Dose: 650 mg Aspirin (Halfprin Ec) 81 mg PO QDAY [facility] Last Admin: 03/21/17 10:32 Dose: 81 mg Atorvastatin Calcium (Lipitor) 20 mg PO QHS EVELYNE Last Admin: 03/20/17 21:47 Dose: 20 mg Bisacodyl (Dulcolax) 10 mg IN QDAY PRN PRN Reason: Constipation unrelieved by MOM Clopidogrel Bisulfate (Plavix) 75 mg PO QDAY [facility] Last Admin: 03/21/17 10:32 Dose: 75 mg Dextrose (D50w (25gm)) 50 ml IV PRN PRN PRN Reason: Hypoglycemia Heparin Sodium/Sodium Chloride (Heparin/ 0.45% Nacl-25,000 Unit/500 Ml) 25,000 unit in 500 mls @ 31.298 mls/hr IV TITRATE EVELYNE; 15 UNITS/KG/HR PRN Reason: Protocol Stop: 03/22/17 09:59 Last Admin: 03/21/17 11:47 Dose: 9 units/kg/hr, 18.779 mls/hr Insulin Aspart (Novolog) 0 units SUB-Q ACHS EVELYNE PRN Reason: Protocol Last Admin: 03/21/17 07:30 Dose: Not Given Isosorbide Mononitrate (Imdur) 30 mg PO QDAY [facility] Last Admin: 03/21/17 10:33 Dose: Not Given Lisinopril (Zestril) 2.5 mg PO QDAY [facility] Last Admin: 03/21/17 10:33 Dose: Not Given Magnesium Hydroxide (Milk Of Magnesia) 30 ml PO Q4H PRN PRN Reason: Constipation Metoprolol Tartrate (Lopressor) 25 mg PO BID [facility] Last Admin: 03/21/17 10:33 Dose: Not Given Morphine Sulfate (Morphine) 2 mg IV Q4H PRN PRN Reason: Pain, Moderate (4-6) Last Admin: 03/21/17 10:17 Dose: 2 mg Nitroglycerin (Nitrostat) 0.4 mg SL .Q5MIN PRN PRN Reason: Chest Pain Last Admin: 03/20/17 09:28 Dose: 0.4 mg Ondansetron HCl (Zofran) 4 mg IV Q8H PRN PRN Reason: N/V unrelieved by Nilay Review of Systems All systems: negative Exam - Constitutional Vitals: Temp Pulse Resp BP Pulse Ox 97.4 F L 88 16 102/60 98 03/21/17 12:00 03/21/17 13:00 03/21/17 13:00 03/21/17 13:00 03/21/17 13:00 General appearance: Present: no acute distress - EENT Eyes: Present: PERRL, EOM intact - Neck Neck: Present: supple, normal ROM - Respiratory Respiratory effort: normal Respiratory: bilateral: CTA Results - Labs CBC & Chem 7: 03/22/17 04:23 03/22/17 04:23 Labs: Abnormal lab results 03/20/17 03/20/17 03/20/17 Range/Units 13:24 16:48 16:59 WBC (4.5-11.0) K/mm3 [place] # (0.0-0.8) K/mm3 Seg Neutrophils % (40.0-70.0) % Seg Neutrophils # (1.8-7.7) K/mm3 APTT 50.3 H (24.2-36.6) Sec. Heparin Anti-Xa Level (0.3-0.7) U.I./ml Chloride (98-107) mmol/L Creatinine (0.7-1.2) mg/dL Glucose (65-100) mg/dL POC Glucose 161 H (70-105) Hemoglobin A1c 6.1 H (4-6) % Calcium (8.4-10.2) mg/dL Total Creatine Kinase (30-135) units/L CK-MB (CK-2) (0.0-4.0) ng/mL CK-MB (CK-2) Rel Index (0-4) Troponin T (0.00-0.029) ng/mL 03/20/17 03/20/17 03/21/17 Range/Units 21:12 21:44 07:57 WBC 12.7 H (4.5-11.0) K/mm3 [place] # 0.9 H (0.0-0.8) K/mm3 Seg Neutrophils % 71.1 H (40.0-70.0) % Seg Neutrophils # 9.1 H (1.8-7.7) K/mm3 APTT (24.2-36.6) Sec. Heparin Anti-Xa Level 1.57 H (0.3-0.7) U.I./ml Chloride (98-107) mmol/L Creatinine (0.7-1.2) mg/dL Glucose (65-100) mg/dL POC Glucose 162 H (70-105) Hemoglobin A1c (4-6) % Calcium (8.4-10.2) mg/dL Total Creatine Kinase (30-135) units/L CK-MB (CK-2) (0.0-4.0) ng/mL CK-MB (CK-2) Rel Index (0-4) Troponin T (0.00-0.029) ng/mL 03/21/17 03/21/17 03/21/17 Range/Units 07:57 07:57 07:57 WBC (4.5-11.0) K/mm3 [place] # (0.0-0.8) K/mm3 Seg Neutrophils % (40.0-70.0) % Seg Neutrophils # (1.8-7.7) K/mm3 APTT (24.2-36.6) Sec. Heparin Anti-Xa Level 1.00 H (0.3-0.7) U.I./ml Chloride 109.8 H (98-107) mmol/L Creatinine 0.5 L (0.7-1.2) mg/dL Glucose 117 H (65-100) mg/dL POC Glucose (70-105) Hemoglobin A1c (4-6) % Calcium 8.1 L (8.4-10.2) mg/dL Total Creatine Kinase 750 H (30-135) units/L CK-MB (CK-2) 53.6 H (0.0-4.0) ng/mL CK-MB (CK-2) Rel Index 7.1 H (0-4) Troponin T 1.740 H* D (0.00-0.029) ng/mL 03/21/17 Range/Units 11:56 WBC (4.5-11.0) K/mm3 [place] # (0.0-0.8) K/mm3 Seg Neutrophils % (40.0-70.0) % Seg Neutrophils # (1.8-7.7) K/mm3 APTT (24.2-36.6) Sec. Heparin Anti-Xa Level (0.3-0.7) U.I./ml Chloride (98-107) mmol/L Creatinine (0.7-1.2) mg/dL Glucose (65-100) mg/dL POC Glucose 116 H (70-105) Hemoglobin A1c (4-6) % Calcium (8.4-10.2) mg/dL Total Creatine Kinase (30-135) units/L CK-MB (CK-2) (0.0-4.0) ng/mL CK-MB (CK-2) Rel Index (0-4) Troponin T (0.00-0.029) ng/mL Assessment and Plan 46 y/o with STEMI Follow cardiology recs They will determine when stable for transfer out of ICU
[2017-03-21] MEDS ORDERED: AMBIEN PO ONE (21:44)
[2017-03-22] MEDS: MORPHINE IV PRN (05:30)
[2017-03-22 05:41] LABS: Hemoglobin 12.3 gm/dl (10.1-14.3)
[2017-03-22 05:53] LABS: Anion Gap 14 mmol/L; Blood Urea Nitrogen 10 mg/dL (7-17); Calcium 8.2 mg/dL (8.4-10.2); Carbon Dioxide 23 mmol/L (22-30); Chloride 107.4 mmol/L (98-107); Glucose 93 mg/dL (65-100); Potassium 3.7 mmol/L (3.6-5.0); Sodium 141 mmol/L (137-145)
--- NOTE | 2017-03-22 08:58 | Progress Note ---
Assessment and Plan Assessment and plan: Acute NSTEMI. Patient presented with chest pain, diagnosed with NSTEMI. Cardiac cath yesterday showed total occlusion of LAD in distal apical segment. Medical management recommended by Cardiology. Continue Aspirin, Plavix, Heparin drip, metoprolol. Will transfer from ICU to telemetry today. home tomorrow if stable. Morbid obesity. Full code status. History Interval history: patient presented with chest pain, diagnosed with acute myocardial infarction, no more chest pain Hospitalist Physical - Physical exam Narrative exam: Gen: appearance :Not in acute distress,morbidly obese HEENT: normocephalic atraumatic Neck :supple no JVD Lungs: clear to auscultation bilaterally, no crackles or wheezes Heart:S1 and S2 regular, no murmurs no gallop Abdomen soft, non-tender, non-distended, normal bowel sounds Extremities: no edema, no clubbing, or cyanosis Neuro : Awake alert oriented 3, no focal neurologic signs Psych :normal mood. - Constitutional Vitals: Temp Pulse Resp BP Pulse Ox 98.9 F 80 16 111/71 97 03/22/17 08:00 03/22/17 08:00 03/22/17 08:00 03/22/17 08:00 03/22/17 08:34 General appearance: Present: no acute distress, well-nourished Results - Labs CBC & Chem 7: 03/22/17 04:23 03/22/17 04:23 Labs: Laboratory Last Values WBC 12.7 K/mm3 (4.5-11.0) H 03/21/17 07:57 RBC 4.26 M/mm3 (3.65-5.03) 03/21/17 07:57 Hgb 12.3 gm/dl (10.1-14.3) 03/22/17 04:23 Hct 36.0 % (30.3-42.9) 03/22/17 04:23 MCV 82 fl (79-97) 03/21/17 07:57 MCH 28 pg (28-32) 03/21/17 07:57 MCHC 33 % (30-34) 03/21/17 07:57 RDW 13.7 % (13.2-15.2) 03/21/17 07:57 Plt Count 234 K/mm3 (140-440) 03/22/17 04:23 Lymph % (Auto) 21.5 % (13.4-35.0) 03/21/17 07:57 [place] % (Auto) 6.9 % (0.0-7.3) 03/21/17 07:57 Eos % (Auto) 0.1 % (0.0-4.3) 03/21/17 07:57 Baso % (Auto) 0.4 % (0.0-1.8) 03/21/17 07:57 Lymph # 2.7 K/mm3 (1.2-5.4) 03/21/17 07:57 [place] # 0.9 K/mm3 (0.0-0.8) H 03/21/17 07:57 Eos # 0.0 K/mm3 (0.0-0.4) 03/21/17 07:57 Baso # 0.0 K/mm3 (0.0-0.1) 03/21/17 07:57 Seg Neutrophils % 71.1 % (40.0-70.0) H 03/21/17 07:57 Seg Neutrophils # 9.1 K/mm3 (1.8-7.7) H 03/21/17 07:57 PT 14.3 Sec. (12.2-14.9) 03/20/17 13:24 INR 1.12 (0.87-1.13) 03/20/17 13:24 APTT 50.3 Sec. (24.2-36.6) H 03/20/17 13:24 Heparin Anti-Xa Level 0.46 U.I./ml (0.3-0.7) 03/22/17 00:47 Sodium 141 mmol/L (137-145) 03/22/17 04:23 Potassium 3.7 mmol/L (3.6-5.0) 03/22/17 04:23 Chloride 107.4 mmol/L (98-107) H 03/22/17 04:23 Carbon Dioxide 23 mmol/L (22-30) 03/22/17 04:23 Anion Gap 14 mmol/L 03/22/17 04:23 BUN 10 mg/dL (7-17) 03/22/17 04:23 Creatinine 0.5 mg/dL (0.7-1.2) L 03/22/17 04:23 Estimated GFR > 60 ml/min 03/22/17 04:23 BUN/Creatinine Ratio 20.00 % 03/22/17 04:23 Glucose 93 mg/dL (65-100) 03/22/17 04:23 POC Glucose 91 (70-105) 03/22/17 07:41 Hemoglobin A1c 6.1 % (4-6) H 03/20/17 16:48 Calcium 8.2 mg/dL (8.4-10.2) L 03/22/17 04:23 Total Creatine Kinase 750 units/L (30-135) H 03/21/17 07:57 CK-MB (CK-2) 53.6 ng/mL (0.0-4.0) H 03/21/17 07:57 CK-MB (CK-2) Rel Index 7.1 (0-4) H 03/21/17 07:57 Troponin T 1.740 ng/mL (0.00-0.029) H* D 03/21/17 07:57 Blood Type A POSITIVE 03/20/17 09:19 Antibody Screen TNR 03/20/17 09:19 JEANNE Antibody Screen Negative 03/20/17 09:19
[2017-03-22] MEDS: NITROSTAT SL PRN (08:59)
[2017-03-22] MEDS: LOPRESSOR PO SCH ×2 (09:01→23:33)
[2017-03-22] MEDS: IMDUR PO SCH (09:01)
[2017-03-22] MEDS: PLAVIX PO SCH (09:02)
[2017-03-22] MEDS: ZESTRIL PO SCH (09:02)
[2017-03-22] MEDS: HALFPRIN EC PO SCH (09:03)
[2017-03-22] MEDS: NOVOLOG SUB-Q SCH ×4 (09:03→22:50)
--- NOTE | 2017-03-22 09:51 | Progress Note ---
Subjective Date of service: 03/22/17 Interval history: No acute events overnight Objective - Constitutional Vitals: Vital Signs - 12hr 03/21/17 03/21/17 03/21/17 22:00 22:08 22:15 Temperature Pulse Rate 87 71 80 Respiratory 19 21 Rate Blood Pressure 120/71 120/71 112/66 O2 Sat by Pulse 97 99 Oximetry 03/21/17 03/21/17 03/21/17 22:30 22:45 23:00 Temperature Pulse Rate 83 85 87 Respiratory 17 19 17 Rate Blood Pressure 110/66 106/66 109/61 O2 Sat by Pulse 96 96 94 Oximetry 03/21/17 03/21/17 03/21/17 23:15 23:30 23:45 Temperature Pulse Rate 79 87 87 Respiratory 17 18 18 Rate Blood Pressure 108/62 102/59 103/59 O2 Sat by Pulse 95 96 96 Oximetry 03/22/17 03/22/17 03/22/17 00:00 00:15 00:30 Temperature 98.4 F Pulse Rate 87 85 91 H Respiratory 18 18 18 Rate Blood Pressure 108/61 106/55 104/62 O2 Sat by Pulse 98 97 Oximetry 03/22/17 03/22/17 03/22/17 00:45 01:00 01:15 Temperature Pulse Rate 84 80 86 Respiratory 17 16 13 Rate Blood Pressure 103/62 109/58 108/58 O2 Sat by Pulse 96 Oximetry 03/22/17 03/22/17 03/22/17 01:30 01:45 02:00 Temperature Pulse Rate 84 78 78 Respiratory 16 18 18 Rate Blood Pressure 108/58 103/61 107/56 O2 Sat by Pulse 94 96 Oximetry 03/22/17 03/22/17 03/22/17 02:15 02:30 02:45 Temperature Pulse Rate 83 83 82 Respiratory 15 16 16 Rate Blood Pressure 112/66 99/56 99/54 O2 Sat by Pulse 97 97 Oximetry 03/22/17 03/22/17 03/22/17 03:00 03:15 03:30 Temperature Pulse Rate 81 82 82 Respiratory 18 13 14 Rate Blood Pressure 101/55 98/55 95/51 O2 Sat by Pulse 97 97 97 Oximetry 03/22/17 03/22/17 03/22/17 03:45 04:00 04:15 Temperature 98.6 F Pulse Rate 88 90 106 H Respiratory 15 16 16 Rate Blood Pressure 101/52 102/61 107/53 O2 Sat by Pulse 98 96 96 Oximetry 03/22/17 03/22/17 03/22/17 04:30 04:45 05:00 Temperature Pulse Rate 95 H 73 70 Respiratory 26 H 15 17 Rate Blood Pressure 113/71 105/63 102/59 O2 Sat by Pulse 96 96 96 Oximetry 03/22/17 03/22/17 03/22/17 05:15 05:30 05:45 Temperature Pulse Rate 75 84 88 Respiratory 18 17 13 Rate Blood Pressure 104/60 107/64 112/68 O2 Sat by Pulse 95 96 Oximetry 03/22/17 03/22/17 03/22/17 06:00 06:15 06:30 Temperature Pulse Rate 95 H 84 84 Respiratory 19 19 16 Rate Blood Pressure 112/68 115/64 121/72 O2 Sat by Pulse 98 94 Oximetry 03/22/17 03/22/17 03/22/17 06:45 07:00 07:15 Temperature Pulse Rate 85 83 82 Respiratory 16 16 15 Rate Blood Pressure 115/69 117/71 123/67 O2 Sat by Pulse 95 97 Oximetry 03/22/17 03/22/17 03/22/17 07:30 07:45 08:00 Temperature 98.9 F Pulse Rate 79 80 80 Respiratory 15 17 16 Rate Blood Pressure 117/72 115/72 111/71 O2 Sat by Pulse Oximetry 03/22/17 03/22/17 03/22/17 08:15 08:30 08:34 Temperature Pulse Rate 84 97 H Respiratory 21 15 Rate Blood Pressure 116/76 116/76 O2 Sat by Pulse 96 95 97 Oximetry 03/22/17 03/22/17 03/22/17 08:45 08:59 09:00 Temperature Pulse Rate 98 H 106 H 106 H Respiratory 15 17 Rate Blood Pressure 119/69 119/69 119/69 O2 Sat by Pulse 96 95 Oximetry 03/22/17 03/22/17 03/22/17 09:01 09:02 09:15 Temperature Pulse Rate 103 H 103 H 92 H Respiratory 17 Rate Blood Pressure 119/69 119/69 107/58 O2 Sat by Pulse 98 Oximetry - Labs CBC & Chem 7: 03/22/17 04:23 03/22/17 04:23 Labs: Abnormal lab results 03/21/17 03/21/17 03/22/17 Range/Units 11:56 15:51 04:23 Chloride 107.4 H (98-107) mmol/L Creatinine 0.5 L (0.7-1.2) mg/dL POC Glucose 116 H 128 H (70-105) Calcium 8.2 L (8.4-10.2) mg/dL
--- NOTE | 2017-03-22 11:46 | Progress Note ---
Assessment and Plan Acute coronary syndrome Cardiac cath: 100% occlusion of the LAD in its distal apical segment. Not suitable for intervention-recommended for medical therapy. The reminder of her coronary anatomy has no significant lesions. LVEF was 55-60%, with a small segment of anteroapical HK. Recommendations: May transfer to tele Increase lipitor to 40mg po qhs Home tomorrow Outpatient follow-up and cardiac rehab Subjective Date of service: 03/22/17 Principal diagnosis: STEMI Interval history: Patient seen and examined She is doing well She is having mild pleuritic chest pain this morning No event on tele Objective Vital Signs Temp Pulse Resp BP Pulse Ox 03/22/17 09:15 92 H 17 107/58 98 03/22/17 09:02 103 H 119/69 03/22/17 09:01 103 H 119/69 03/22/17 09:00 106 H 17 119/69 95 03/22/17 08:59 106 H 119/69 03/22/17 08:45 98 H 15 119/69 96 03/22/17 08:34 97 03/22/17 08:30 97 H 15 116/76 95 03/22/17 08:15 84 21 116/76 96 03/22/17 08:00 98.9 F 80 16 111/71 03/22/17 07:45 80 17 115/72 03/22/17 07:30 79 15 117/72 03/22/17 07:15 82 15 123/67 97 03/22/17 07:00 83 16 117/71 03/22/17 06:45 85 16 115/69 95 03/22/17 06:30 84 16 121/72 03/22/17 06:15 84 19 115/64 94 03/22/17 06:00 95 H 19 112/68 98 03/22/17 05:45 88 13 112/68 03/22/17 05:30 84 17 107/64 96 03/22/17 05:15 75 18 104/60 95 03/22/17 05:00 70 17 102/59 96 03/22/17 04:45 73 15 105/63 96 03/22/17 04:30 95 H 26 H 113/71 96 03/22/17 04:15 106 H 16 107/53 96 03/22/17 04:00 98.6 F 90 16 102/61 96 03/22/17 03:45 88 15 101/52 98 03/22/17 03:30 82 14 95/51 97 03/22/17 03:15 82 13 98/55 97 03/22/17 03:00 81 18 101/55 97 03/22/17 02:45 82 16 99/54 97 03/22/17 02:30 83 16 99/56 97 03/22/17 02:15 83 15 112/66 03/22/17 02:00 78 18 107/56 96 03/22/17 01:45 78 18 103/61 94 03/22/17 01:30 84 16 108/58 03/22/17 01:15 86 13 108/58 96 03/22/17 01:00 80 16 109/58 03/22/17 00:45 84 17 103/62 03/22/17 00:30 91 H 18 104/62 03/22/17 00:15 85 18 106/55 97 03/22/17 00:00 98.4 F 87 18 108/61 98 03/21/17 23:45 87 18 103/59 96 03/21/17 23:30 87 18 102/59 96 03/21/17 23:15 79 17 108/62 95 03/21/17 23:00 87 17 109/61 94 03/21/17 22:45 85 19 106/66 96 03/21/17 22:30 83 17 110/66 96 03/21/17 22:15 80 21 112/66 99 03/21/17 22:08 71 120/71 03/21/17 22:00 87 19 120/71 97 03/21/17 21:45 82 21 110/60 97 03/21/17 21:30 87 21 111/57 96 03/21/17 21:15 75 14 114/66 97 03/21/17 21:00 96 H 26 H 102/58 97 03/21/17 20:46 91 H 18 102/58 97 03/21/17 20:30 77 16 102/58 97 03/21/17 20:20 98 03/21/17 20:15 87 21 108/59 96 03/21/17 20:00 98.8 F 79 14 102/58 98 03/21/17 19:45 80 21 108/62 98 03/21/17 19:30 83 21 114/67 97 03/21/17 19:15 86 20 115/67 98 03/21/17 19:00 87 11 L 128/69 97 03/21/17 18:46 86 14 125/75 98 03/21/17 18:45 84 12 125/75 97 03/21/17 18:30 90 12 118/75 96 03/21/17 18:15 92 H 14 126/78 96 03/21/17 18:00 96 H 12 131/71 95 03/21/17 17:45 79 15 120/74 97 03/21/17 17:30 83 16 115/70 95 03/21/17 17:15 92 H 20 125/79 96 03/21/17 17:00 114 H 18 120/87 98 03/21/17 16:45 87 12 130/79 98 03/21/17 16:30 87 14 126/67 98 03/21/17 16:15 100 H 14 133/79 99 03/21/17 16:00 98.7 F 89 13 111/64 99 03/21/17 15:45 96 H 17 114/72 98 03/21/17 15:30 84 9 L 124/61 97 03/21/17 15:15 87 15 117/65 03/21/17 15:00 82 16 123/71 98 03/21/17 14:45 94 H 11 L 127/66 95 03/21/17 14:30 103 H 24 121/63 96 03/21/17 14:16 82 13 124/63 99 03/21/17 14:00 89 13 124/63 100 03/21/17 13:46 79 12 124/63 100 03/21/17 13:30 81 10 L 124/63 98 03/21/17 13:15 103 H 18 107/58 99 03/21/17 13:00 88 16 102/60 98 03/21/17 12:45 81 13 113/64 03/21/17 12:30 108/65 96 03/21/17 12:15 84 18 118/65 99 03/21/17 12:00 97.4 F L 82 12 112/65 03/21/17 11:45 76 12 117/64 - Physical Examination General: No Apparent Distress HEENT: Positive: PERRL Neck: Positive: neck supple Cardiac: Positive: Reg Rate and Rhythm Lungs: Positive: Normal Exam Neuro: Positive: Grossly Intact Abdomen: Positive: Soft Skin: Positive: Clear Incision: Cardiac Cath Site Extremities: Absent: edema - Labs and Meds CBC 03/22/17 Range/Units 04:23 Hgb 12.3 (10.1-14.3) gm/dl Hct 36.0 (30.3-42.9) % Plt Count 234 (140-440) K/mm3 Comprehensive Metabolic Panel 03/22/17 Range/Units 04:23 Sodium 141 (137-145) mmol/L Potassium 3.7 (3.6-5.0) mmol/L Chloride 107.4 H (98-107) mmol/L Carbon Dioxide 23 (22-30) mmol/L BUN 10 (7-17) mg/dL Creatinine 0.5 L (0.7-1.2) mg/dL Glucose 93 (65-100) mg/dL Calcium 8.2 L (8.4-10.2) mg/dL
--- NOTE | 2017-03-23 10:42 | Progress Note ---
Assessment and Plan Acute coronary syndrome Cardiac cath: 100% occlusion of the LAD in its distal apical segment. Not suitable for intervention-recommended for medical therapy. The reminder of her coronary anatomy has no significant lesions. LVEF was 55-60%, with a small segment of anteroapical HK. Recommendations: Continue medical therapy for coronary disease with Imdur, Metoprolol, Lisinopril , ASA, Plavix and Atorvastatin. Stable, cardiac godoy, for discharge home today. 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 Subjective Date of service: 03/23/17 Principal diagnosis: STEMI Interval history: Patient has no chest pain or shortness of breath. Somewhat anxious and confused about her cardiac status. Copy of cath CD and report given to the patient. Objective Vital Signs Temp Pulse Pulse Resp BP BP Pulse Ox 03/23/17 08:36 95 03/23/17 04:26 99.0 F 98 H 20 88/55 97 03/23/17 01:14 98.9 F 82 20 105/50 96 03/22/17 22:00 98.6 F 90 99 H 20 90/53 98 03/22/17 21:02 98 03/22/17 17:45 87 19 105/46 98 03/22/17 17:30 78 17 110/50 99 03/22/17 17:15 80 12 102/47 98 03/22/17 17:00 86 13 101/51 97 03/22/17 16:45 82 16 95/43 97 03/22/17 16:30 83 13 95/51 96 03/22/17 16:16 88 14 89/36 97 03/22/17 16:00 87 14 99/52 97 03/22/17 15:47 99.1 F 03/22/17 15:45 86 17 97/48 97 03/22/17 15:30 88 24 95/53 97 03/22/17 15:15 93 H 14 79/51 97 03/22/17 15:00 81 23 101/39 95 03/22/17 14:45 83 15 88/58 99 03/22/17 14:30 88 13 89/45 96 03/22/17 14:15 92 H 22 96/43 99 03/22/17 14:00 86 20 100/52 97 03/22/17 13:45 90 12 101/52 98 03/22/17 13:30 79 20 105/49 96 03/22/17 13:16 90 19 98/48 96 03/22/17 13:00 72 24 103/52 96 03/22/17 12:45 77 13 93/60 97 03/22/17 12:30 86 11 L 110/60 97 03/22/17 12:15 76 13 106/62 98 03/22/17 12:00 98.6 F 80 13 110/73 97 03/22/17 11:45 77 17 113/65 97 03/22/17 11:30 78 15 96/43 96 03/22/17 11:16 96/43 95 03/22/17 11:00 68 16 96/43 99 03/22/17 10:45 71 19 113/64 99 - Physical Examination General: No Apparent Distress HEENT: Positive: PERRL Neck: Positive: neck supple Cardiac: Positive: Reg Rate and Rhythm Lungs: Positive: Decreased Breath Sounds Neuro: Positive: Grossly Intact Incision: Cardiac Cath Site Extremities: Absent: edema - Labs and Meds Lipids 03/23/17 Range/Units 07:00 Triglycerides 81 (2-149) mg/dL Cholesterol 133 (50-199) mg/dL HDL Cholesterol 48 (40-59) mg/dL Cholesterol/HDL Ratio 2.77 %
[2017-03-23] MEDS: ZESTRIL PO SCH (10:51)
[2017-03-23] MEDS: IMDUR PO SCH (10:51)
[2017-03-23] MEDS: LOPRESSOR PO SCH (10:51)
[2017-03-23] MEDS: PLAVIX PO SCH (10:51)
[2017-03-23] MEDS: HALFPRIN EC PO SCH (10:51)
--- NOTE | 2017-03-23 10:57 | Discharge Summary ---
Providers - Providers Date of Admission: 03/20/17 10:59 Date of discharge: 03/23/17 Attending physician: MARIE ROJAS 03/21/17 09:51 Consult to Physician [CONS] Routine Consulting Provider: KELLY CASTRO Reason For Exam: critical care management Place consult to:: Kelly Castro Notified:: [id number] Phone number called:: [phone] Was contact made?: Yes If yes, spoke with:: Kelly Castro Time called:: 09:45 Primary care physician: TAX ANALYST Hospitalization Condition: Stable Disposition: DC-30 STILL A PATIENT - Discharge Diagnoses (1) NSTEMI (non-ST elevated myocardial infarction) Status: Acute Exam - Constitutional Vitals: Temp Pulse Resp BP Pulse Ox 99.0 F 98 H 20 88/55 95 03/23/17 04:26 03/23/17 04:26 03/23/17 04:26 03/23/17 04:26 03/23/17 08:36 Plan Activity: other (No strenous activity) Diet: low fat, low cholesterol, low salt Additional Instructions: 1.Follow up with PCP or [facility] in 1 week. 2.Follow up with Dr. Still in 1 week. 3.No strenous activity until cleared by Cardiology Follow up with: PRIMARY CARE, [Primary Care Provider] - 3-5 Days Prescriptions: Aspirin EC [Aspirin Enteric Coated TAB] 81 mg PO QDAY #30 tablet AtorvaSTATin [Lipitor] 40 mg PO QHS #30 tablet Clopidogrel [Plavix] 75 mg PO QDAY #30 tablet ISOSORBIDE MONOnitrate [Imdur ER] 30 mg PO QDAY #30 tablet Lisinopril [Zestril TAB] 2.5 mg PO QDAY #30 tablet Metoprolol [Lopressor TAB] 25 mg PO BID #60 tablet
[2017-03-23] MEDS: NOVOLOG SUB-Q SCH (11:44)
[2017-03-23 19:13] VITALS: BP 99/63
== END 2017-03-23 14:55 | disposition home or self-care (01) | DRG 281 ==
LOC: ED 09:11 → CATH 10:58 → CC1 10:59 → 4A 03-22 17:47
PROVIDERS: ADMIT Internal Medicine; ATTEND Internal Medicine
PROC: 4A023N7 Measurement of Cardiac Sampling and Pressure, Left Heart, Percutaneous Approach (ICD-10-PCS; principal; 2017-03-20)
PROC: B2151ZZ Fluoroscopy of Left Heart using Low Osmolar Contrast (ICD-10-PCS; 2017-03-20)
PROC: B2111ZZ Fluoroscopy of Multiple Coronary Arteries using Low Osmolar Contrast (ICD-10-PCS; 2017-03-20)
DX: I21.4 Non-ST elevation (NSTEMI) myocardial infarction (principal); Z68.43 Body mass index [BMI] 50.0-59.9, adult; I10 Essential (primary) hypertension; I24.9 Acute ischemic heart disease, unspecified; F10.10 Alcohol abuse, uncomplicated; R73.9 Hyperglycemia, unspecified; E66.01 Morbid (severe) obesity due to excess calories; I25.82 Chronic total occlusion of coronary artery; Z83.3 Family history of diabetes mellitus; Z83.49 Family history of other endocrine, nutritional and metabolic diseases; Z82.49 Family history of ischemic heart disease and other diseases of the circulatory system
CPT/HCPCS: 36415; 80048; 80061; 82550; 82553; 82962; 83036; 84484; 85014; 85018; 85025; 85049; 85520; 85610; 85730; 86850; 86900; 86901; 93005; 93010; 93458; 94760; 96374; 99285; A9270-GY; C1760; C1894; J0583; J1200; J1644; J2250; J2270; J2930; J3010; J3246; J7030; J7040; Q9967